=== PATIENT | male | born 1945 | race Caucasian/White ===

== ENCOUNTER 2017-09-07 20:00 | Emergency (ER) | payer MEDICARE ==
[2017-09-07 20:15] VITALS: BP 143/73; PULSE 89; RESP 18; TEMP 97.8; O2SAT 99
--- NOTE | 2017-09-07 21:03 | PD ---
HPI Chief Complaint: Syncope/Near-Syncope Time Seen by Provider: 20:48 Travel History International Travel<30 days: No Contact w/Intl Traveler<30days: No Traveled to known affect area: No History of Present Illness HPI 72-year-old male that presents to the ED for evaluation of possible syncope. Patient apparently was at [facility] and apparently per nurse report took "an extra xanax and smoked week". Per patient himself he did have a couple drinks. Normal exam patient is somnolent but arousable. He answers basic yes or no questions. But for the most part he is not really able to answer any other questions. He denies any urinary or bowel movement issues. No chest pain or shortness of breath. No abdominal pain. Patient does grunt and says yes or no questions otherwise cannot really get a good history from the patient. Again most the history is obtained from the ED nurse. Patient does smell of alcohol. No signs of trauma to the head. Unclear as to what happened to the syncopal episodes since patient cannot really tell me anything about him. [facility] Past Medical History Medical History: Unable to Obtain ?: Not Past Surgical History Surgical History: Unable to Obtain Social History Alcohol Use: Yes Tobacco Use: Yes Substance Use: No Allergies-Medications (Allergen,Severity, Reaction): Coded Allergies: Sulfa (Sulfonamide Antibiotics) (Verified Allergy, Unknown, 09/07/17) azithromycin (Verified Allergy, Unknown, 09/07/17) esomeprazole (Verified Allergy, Unknown, 09/07/17) Review of Systems ROS Limitations: Intoxication, Poor Historian Except as stated in HPI: all other systems reviewed are Neg Physical Exam Exam Limitations: Intoxication, Poor Historian Narrative GENERAL: SKIN: Warm and dry. HEAD: Atraumatic. Normocephalic. EYES: Pupils equal and round. No scleral icterus. No injection or drainage. ENT: No nasal bleeding or discharge. Mucous membranes pink and moist. Tongue is midline. No uvula deviation. NECK: Trachea midline. No JVD. CARDIOVASCULAR: Regular rate and rhythm. No murmurs, S3, S4. RESPIRATORY: No accessory muscle use. Clear to auscultation. Breath sounds equal bilaterally. GASTROINTESTINAL: Abdomen soft, non-tender, nondistended. Hepatic and splenic margins not palpable. MUSCULOSKELETAL: Extremities without clubbing, cyanosis, or edema. No obvious deformities. Full range of motion of the upper and lower extremities bilaterally. 2+ pulses bilaterally. NEUROLOGICAL: Awake and alert. No obvious cranial nerve deficits. Motor grossly within normal limits. Five out of 5 muscle strength in the arms and legs. Normal speech. PSYCHIATRIC: Appropriate mood and affect; insight and judgment normal. Data Data Last Documented VS Vital Signs Date Time Temp Pulse Resp B/P (MAP) Pulse Ox O2 Delivery O2 Flow Rate FiO2 09/07/17 20:15 97.8 89 18 143/73 (96) 99 Orders Orders Electrocardiogram (09/07/17 20:51) Complete Blood Count With Diff (09/07/17 20:51) Comprehensive Metabolic Panel (09/07/17 20:51) Iv Access Insert/Monitor (09/07/17 20:51) Electrocardiogram (09/07/17 20:57) Ckmb (Isoenzyme) Profile (09/07/17 20:57) Troponin I (09/07/17 20:57) Prothrombin Time / Inr (Pt) (09/07/17 20:57) Act Partial Throm Time (Ptt) (09/07/17 20:57) Lipase (09/07/17 20:57) Urinalysis - C+S If Indicated (09/07/17 20:57) Magnesium (Mg) (09/07/17 20:57) Thyroid Stimulating Hormone (09/07/17 20:57) Chest, Single Ap (09/07/17 20:57) Ct Brain W/O Iv Contrast(Rout) (09/07/17 20:57) Ecg Monitoring (09/07/17 20:57) Oximetry (09/07/17 20:57) Orthostatic Vital Signs (09/07/17 20:57) Drug Screen, Random Urine (09/07/17 20:57) Alcohol (Ethanol) (09/07/17 20:57) Salicylates (Aspirin) (09/07/17 20:57) Tylenol (Acetaminophen) (09/07/17 20:57) MDM Medical Decision Making Medical Screen Exam Complete: Yes Emergency Medical Condition: Yes Medical Record Reviewed: Yes Differential Diagnosis Intoxication versus syncope versus altered mental status versus CVA versus ACS versus dehydration versus hypotension Narrative Course 72-year-old male that presents to the ED for evaluation of possible syncope. Patient was properly examined and was found to have signs and symptoms consistent appears to be likely intoxication with syncope. Patient is anyone your sore history is hard to get from the patient as he does appear to be somewhat intoxicated. Private patient he had syncopal episodes witnessed by who is the one who called the ambulance. Unfortunately lives not bedside as patient is seen in the triage ambulance area. Labs and imaging were ordered. Case will be signed out to incoming provider pending disposition and plan. Leonid Maldonado Sep 07, 2017 21:03
[2017-09-07 21:23] LABS: AUTOMATED NEUTROPHIL # 3.6 TH/MM3 (1.8-7.7); BASOPHIL % 0.8 % (0.0-2.0); EOSINOPHIL # 0.2 TH/MM3 (0-0.4); EOSINOPHIL % 3.8 % (0.0-4.0); HEMATOCRIT 44.6 % (39.0-51.0); HEMOGLOBIN 15.2 GM/DL (13.0-17.0); LYMPHOCYTE # 1.9 TH/MM3 (1.0-4.8); MEAN CELL VOLUME 86.3 FL (80.0-100.0); MEAN CORPUSCULAR HEMOGLOBIN 29.5 PG (27.0-34.0); MEAN CORPUSCULAR HGB CONC 34.2 % (32.0-36.0); MEAN PLATELET VOLUME 7.4 FL (7.0-11.0); MONO % 7.1 % (0.0-8.0); MONOCYTE # 0.4 TH/MM3 (0-0.9); NEUT % 58.3 % (16.0-70.0); PLATELET COUNT 233 TH/MM3 (150-450); RED BLOOD COUNT 5.17 MIL/MM3 (4.50-5.90); RED CELL DISTRIBUTION WIDTH 13.4 % (11.6-17.2); WHITE BLOOD COUNT 6.2 TH/MM3 (4.0-11.0)
[2017-09-07 21:39] LABS: ALBUMIN 3.7 GM/DL (3.4-5.0); AST (GOT) 21 U/L (15-37); BICARBONATE 27.9 MEQ/L (21.0-32.0); BLOOD UREA NITROGEN 22 MG/DL (7-18); CALCIUM 8.7 MG/DL (8.5-10.1); CHLORIDE 102 MEQ/L (98-107); CREATININE 1.43 MG/DL (0.60-1.30); GLOMERULAR FILTRATION RATE 49 ML/MIN (>89); GLUCOSE,RANDOM 124 MG/DL (74-106); SODIUM (NA) 139 MEQ/L (136-145)
--- NOTE | 2017-09-07 21:41 | RADRPT ---
EXAM DATE/TIME: 09/07/2017 21:23 [facility] COMPARISON: No previous studies available for comparison. INDICATIONS : Syncope today. RADIATION DOSE: 66.34 CTDIvol (mGy) MEDICAL HISTORY : Non-responsive. SURGICAL HISTORY : Non-responsive. ENCOUNTER: Initial ACUITY: 1 day PAIN SCALE: Non-responsive LOCATION: Bilateral head TECHNIQUE: Multiple contiguous axial images were obtained of the head. Using automated exposure control and adj ustment of the mA and/or kV according to patient size, radiation dose was kept as low as reasonably a chievable to obtain optimal diagnostic quality images. DICOM format image data is available electro nically for review and comparison. FINDINGS: CEREBRUM: The ventricles are normal for age. No evidence of midline shift, mass lesion, hemorrhage or acute in farction. No extra-axial fluid collections are seen. POSTERIOR FOSSA: The cerebellum and brainstem are intact. The 4th ventricle is midline. The cerebellopontine angle i s unremarkable. EXTRACRANIAL: The visualized portion of the orbits is intact. SKULL: The calvaria is intact. No evidence of skull fracture. CONCLUSION: Normal examination for a patient of this age. Aidan Segal MD on September 07, 2017 at 21:36 Board Certified Radiologist. This report was verified electronically.
[2017-09-07 21:44] LABS: ALKALINE PHOSPHATASE 70 U/L (45-117); ALT (GPT) 37 U/L (12-78); TOTAL BILIRUBIN ADULT 0.4 MG/DL (0.2-1.0); TOTAL PROTEIN 6.9 GM/DL (6.4-8.2)
--- NOTE | 2017-09-07 21:45 | RADRPT ---
EXAM DATE/TIME: 09/07/2017 21:06 [facility] COMPARISON: No previous studies available for comparison. INDICATIONS : Syncope MEDICAL HISTORY : None. SURGICAL HISTORY : None. ENCOUNTER: Initial ACUITY: 1 day PAIN SCORE: Non-responsive. LOCATION: chest FINDINGS: Borderline cardiomegaly. Mild basilar atelectasis. Trace left pleural fluid. No pneumothorax. CONCLUSION: 1. Mild basilar atelectasis. Small left effusion. No pneumothorax. Aidan Segal MD on September 07, 2017 at 21:41 Board Certified Radiologist. This report was verified electronically.
[2017-09-07 21:54] VITALS: BP 130/63; PULSE 77; PULSE 78; RESP 18; O2SAT 100; O2SAT 95
--- NOTE | 2017-09-07 22:03 | PD ---
Data Data Last Documented VS Vital Signs Date Time Temp Pulse Resp B/P (MAP) Pulse Ox O2 Delivery O2 Flow Rate FiO2 09/08/17 04:46 82 18 134/73 (93) 95 09/07/17 21:54 Room Air 09/07/17 20:15 97.8 Orders Orders Electrocardiogram (09/07/17 20:51) Complete Blood Count With Diff (09/07/17 20:51) Comprehensive Metabolic Panel (09/07/17 20:51) Iv Access Insert/Monitor (09/07/17 20:51) Electrocardiogram (09/07/17 20:57) Ckmb (Isoenzyme) Profile (09/07/17 20:57) Troponin I (09/07/17 20:57) Prothrombin Time / Inr (Pt) (09/07/17 20:57) Act Partial Throm Time (Ptt) (09/07/17 20:57) Lipase (09/07/17 20:57) Urinalysis - C+S If Indicated (09/07/17 20:57) Magnesium (Mg) (09/07/17 20:57) Thyroid Stimulating Hormone (09/07/17 20:57) Chest, Single Ap (09/07/17 20:57) Ct Brain W/O Iv Contrast(Rout) (09/07/17 20:57) Ecg Monitoring (09/07/17 20:57) Oximetry (09/07/17 20:57) Orthostatic Vital Signs (09/07/17 20:57) Drug Screen, Random Urine (09/07/17 20:57) Alcohol (Ethanol) (09/07/17 20:57) Salicylates (Aspirin) (09/07/17 20:57) Tylenol (Acetaminophen) (09/07/17 20:57) Cath For Specimen (09/07/17 22:00) Ondansetron Inj (Zofran Inj) (09/07/17 23:30) Ondansetron Inj (Zofran Inj) (09/07/17 23:22) Ed Discharge Order (09/08/17 06:43) Labs Laboratory Tests Test 09/07/17 20:57 09/07/17 21:15 09/07/17 22:27 White Blood Count 6.2 TH/MM3 Red Blood Count 5.17 MIL/MM3 Hemoglobin 15.2 GM/DL Hematocrit 44.6 % Mean Corpuscular Volume 86.3 FL Mean Corpuscular Hemoglobin 29.5 PG Mean Corpuscular Hemoglobin Concent 34.2 % Red Cell Distribution Width 13.4 % Platelet Count 233 TH/MM3 Mean Platelet Volume 7.4 FL Neutrophils (%) (Auto) 58.3 % Lymphocytes (%) (Auto) 30.0 % Monocytes (%) (Auto) 7.1 % Eosinophils (%) (Auto) 3.8 % Basophils (%) (Auto) 0.8 % Neutrophils # (Auto) 3.6 TH/MM3 Lymphocytes # (Auto) 1.9 TH/MM3 Monocytes # (Auto) 0.4 TH/MM3 Eosinophils # (Auto) 0.2 TH/MM3 Basophils # (Auto) 0.0 TH/MM3 CBC Comment DIFF FINAL Differential Comment Blood Urea Nitrogen 22 MG/DL Creatinine 1.43 MG/DL Random Glucose 124 MG/DL Total Protein 6.9 GM/DL Albumin 3.7 GM/DL Calcium Level 8.7 MG/DL Alkaline Phosphatase 70 U/L Aspartate Amino Transf (AST/SGOT) 21 U/L Alanine Aminotransferase (ALT/SGPT) 37 U/L Total Bilirubin 0.4 MG/DL Sodium Level 139 MEQ/L Potassium Level 3.3 MEQ/L Chloride Level 102 MEQ/L Carbon Dioxide Level 27.9 MEQ/L Anion Gap 9 MEQ/L Estimat Glomerular Filtration Rate 49 ML/MIN Prothrombin Time 9.5 SEC Prothromb Time International Ratio 0.9 RATIO Activated Partial Thromboplast Time 21.4 SEC Magnesium Level 2.2 MG/DL Total Creatine Kinase 85 U/L Troponin I LESS THAN 0.02 NG/ML Lipase 136 U/L Thyroid Stimulating Hormone 3rd Gen 1.220 uIU/ML Salicylates Level LESS THAN 1.7 MG/DL Acetaminophen Level LESS THAN 2.0 MCG/ML Ethyl Alcohol Level 9 MG/DL Urine Color YELLOW Urine Turbidity CLEAR Urine pH 6.0 Urine Specific [place] 1.014 Urine Protein NEG mg/dL Urine Glucose (UA) NEG mg/dL Urine Ketones NEG mg/dL Urine Occult Blood TRACE Urine Nitrite NEG Urine Bilirubin NEG Urine Urobilinogen LESS THAN 2.0 MG/DL Urine Leukocyte Esterase NEG Urine RBC 17 /hpf Urine Mucus FEW /lpf Microscopic Urinalysis Comment CULT NOT INDICATED Urine Opiates Screen NEG Urine Barbiturates Screen NEG Urine Amphetamines Screen NEG Urine Benzodiazepines Screen POS Urine Cocaine Screen NEG Urine Cannabinoids Screen NEG MDM Medical Record Reviewed: Yes Supervised Visit with ALEC: No Narrative Course I assumed care of this patient pending lab work and imaging studies. The patient came by EMS and the report that the nurse obtain was [facility] and smokes marijuana. His reportedly called 911 because he had a syncopal episode afterwards. On initial examination the patient has drowsy, sleeping, somewhat arousable to sternal rub , able to answer a few questions. He reports that he has a history of hypertension and he takes losartan. He does not recall the events that happened tonight. He has no complaints except that he is tired. He has never been to [place] before so there is minimal history obtainable on initial examination. The patient's has arrived and provides information. They are snowbirds, live in [place] and [facility]. She reports that tonight he took an extra dose of Xanax, had some alcoholic beverages and smokes marijuana at a friend's house. They then went to dinner. After dinner the patient was not feeling good and put his head on the table and was unable to stand up. The patient's lab work and imaging studies have been reviewed. Potassium is 3.3, GFR is 49, toxicology screen positive for benzodiazepines, alcohol level is 9, chest x-ray reveals small left effusion, CT brain reveals no acute abnormalities. The history is consistent with medication/alcohol coingestion side effect. The patient will remain here overnight and he will be reevaluated in the morning, likely to be discharged once his sedative medications wear off. 0645: The patient is now awake and alert, able to ambulate independently, feels ready to go. His will be called to pick him up. Diagnosis Primary Impression: Medication side effect Additional Instruction: Follow-up closely with primary care physician. Return for any emergent medical conditions. Med/Other Pt SpecificInfo: No Change to Meds Disposition: 01 DISCHARGE HOME Condition: Stable Chandu Bhatti Sep 07, 2017 22:03
[2017-09-07 22:17] LABS: ACETAMINOPHEN LESS THAN 2.0 MCG/ML (10.0-30.0); MAGNESIUM 2.2 MG/DL (1.5-2.5)
[2017-09-07 22:21] LABS: INTERNATIONAL NORMALIZED RATIO 0.9 RATIO; PROTHROMBIN TIME - PATIENT 9.5 SEC (9.8-11.6)
[2017-09-07 22:26] LABS: TROPONIN I LESS THAN 0.02 NG/ML (0.02-0.05)
[2017-09-07 22:41] LABS: BILIRUBIN, URINE NEG (NEG); BLOOD, URINE TRACE (NEG); GLUCOSE,URINE NEG (NEG); KETONE, URINE NEG (NEG); MUCUS URINE FEW /lpf (OCC); NITRITE,URINE NEG (NEG); URINE COLOR YELLOW (YELLW/STRAW); URINE LEUKOCYTE ESTERASE NEG (NEG)
[2017-09-07] MEDS ORDERED: ONDANSETRON HCL 4 MG/2 ML VIAL ONE (23:22)
[2017-09-07] MEDS ORDERED: ONDANSETRON HCL 4 MG/2 ML VIAL IV PUSH ONE (23:30)
--- NOTE | 2017-09-07 23:59 | PD ---
Data Data Last Documented VS Vital Signs Date Time Temp Pulse Resp B/P (MAP) Pulse Ox O2 Delivery O2 Flow Rate FiO2 09/07/17 21:54 78 18 130/63 (85) 95 Room Air 09/07/17 20:15 97.8 Orders Orders Electrocardiogram (09/07/17 20:51) Complete Blood Count With Diff (09/07/17 20:51) Comprehensive Metabolic Panel (09/07/17 20:51) Iv Access Insert/Monitor (09/07/17 20:51) Electrocardiogram (09/07/17 20:57) Ckmb (Isoenzyme) Profile (09/07/17 20:57) Troponin I (09/07/17 20:57) Prothrombin Time / Inr (Pt) (09/07/17 20:57) Act Partial Throm Time (Ptt) (09/07/17 20:57) Lipase (09/07/17 20:57) Urinalysis - C+S If Indicated (09/07/17 20:57) Magnesium (Mg) (09/07/17 20:57) Thyroid Stimulating Hormone (09/07/17 20:57) Chest, Single Ap (09/07/17 20:57) Ct Brain W/O Iv Contrast(Rout) (09/07/17 20:57) Ecg Monitoring (09/07/17 20:57) Oximetry (09/07/17 20:57) Orthostatic Vital Signs (09/07/17 20:57) Drug Screen, Random Urine (09/07/17 20:57) Alcohol (Ethanol) (09/07/17 20:57) Salicylates (Aspirin) (09/07/17 20:57) Tylenol (Acetaminophen) (09/07/17 20:57) Cath For Specimen (09/07/17 22:00) Ondansetron Inj (Zofran Inj) (09/07/17 23:30) Ondansetron Inj (Zofran Inj) (09/07/17 23:22) Labs Laboratory Tests Test 09/07/17 20:57 09/07/17 21:15 09/07/17 22:27 White Blood Count 6.2 TH/MM3 Red Blood Count 5.17 MIL/MM3 Hemoglobin 15.2 GM/DL Hematocrit 44.6 % Mean Corpuscular Volume 86.3 FL Mean Corpuscular Hemoglobin 29.5 PG Mean Corpuscular Hemoglobin Concent 34.2 % Red Cell Distribution Width 13.4 % Platelet Count 233 TH/MM3 Mean Platelet Volume 7.4 FL Neutrophils (%) (Auto) 58.3 % Lymphocytes (%) (Auto) 30.0 % Monocytes (%) (Auto) 7.1 % Eosinophils (%) (Auto) 3.8 % Basophils (%) (Auto) 0.8 % Neutrophils # (Auto) 3.6 TH/MM3 Lymphocytes # (Auto) 1.9 TH/MM3 Monocytes # (Auto) 0.4 TH/MM3 Eosinophils # (Auto) 0.2 TH/MM3 Basophils # (Auto) 0.0 TH/MM3 CBC Comment DIFF FINAL Differential Comment Blood Urea Nitrogen 22 MG/DL Creatinine 1.43 MG/DL Random Glucose 124 MG/DL Total Protein 6.9 GM/DL Albumin 3.7 GM/DL Calcium Level 8.7 MG/DL Alkaline Phosphatase 70 U/L Aspartate Amino Transf (AST/SGOT) 21 U/L Alanine Aminotransferase (ALT/SGPT) 37 U/L Total Bilirubin 0.4 MG/DL Sodium Level 139 MEQ/L Potassium Level 3.3 MEQ/L Chloride Level 102 MEQ/L Carbon Dioxide Level 27.9 MEQ/L Anion Gap 9 MEQ/L Estimat Glomerular Filtration Rate 49 ML/MIN Prothrombin Time 9.5 SEC Prothromb Time International Ratio 0.9 RATIO Activated Partial Thromboplast Time 21.4 SEC Magnesium Level 2.2 MG/DL Total Creatine Kinase 85 U/L Troponin I LESS THAN 0.02 NG/ML Lipase 136 U/L Thyroid Stimulating Hormone 3rd Gen 1.220 uIU/ML Salicylates Level LESS THAN 1.7 MG/DL Acetaminophen Level LESS THAN 2.0 MCG/ML Ethyl Alcohol Level 9 MG/DL Urine Color YELLOW Urine Turbidity CLEAR Urine pH 6.0 Urine Specific [place] 1.014 Urine Protein NEG mg/dL Urine Glucose (UA) NEG mg/dL Urine Ketones NEG mg/dL Urine Occult Blood TRACE Urine Nitrite NEG Urine Bilirubin NEG Urine Urobilinogen LESS THAN 2.0 MG/DL Urine Leukocyte Esterase NEG Urine RBC 17 /hpf Urine Mucus FEW /lpf Microscopic Urinalysis Comment CULT NOT INDICATED Urine Opiates Screen NEG Urine Barbiturates Screen NEG Urine Amphetamines Screen NEG Urine Benzodiazepines Screen POS Urine Cocaine Screen NEG Urine Cannabinoids Screen NEG MDM Supervised Visit with ALEC: Yes Narrative Course The history, exam, and medical decision-making in the associated mid-level provider note were completed with my assistance. I reviewed and agree with the findings presented. I attest that I had a [id number] encounter with the patient on the same day, and personally performed and documented my assessment and findings in the medical record. *My assessment and Findings: 72-year-old man, overdose on Xanax and alcohol. Still sluggishly responsive now. No evidence of trauma. Plan sleep it off, discharge with in a.m. Diagnosis Primary Impression: Medication side effect Dane Hyatt MD Sep 07, 2017 23:59
[2017-09-08 04:46] VITALS: BP 134/73; PULSE 82; RESP 18; O2SAT 95
[2017-09-08 07:23] VITALS: BP 121/71
--- NOTE | 2017-09-08 08:45 | EKG ---
Date Performed: 09/07/2017 Time Performed: 21:18:50 PTAGE: 72 years EKG: Sinus rhythm WITH FIRST DEGREE AV BLOCK RIGHT BUNDLE BRANCH BLOCK LEFT ANTERIOR FASCICULAR BLOCK ABNORMAL ECG NO PREVIOUS TRACING DOCTOR: Harjeet Presley Interpretating Date/Time 09/08/2017 08:31:37
== END 2017-09-08 07:58 | disposition home or self-care (01) ==
LOC: NEPD 20:00
DX: T42.4X1A Poisoning by benzodiazepines, accidental (unintentional), initial encounter (principal); F10.129 Alcohol abuse with intoxication, unspecified; F12.90 Cannabis use, unspecified, uncomplicated; J98.11 Atelectasis; J90 Pleural effusion, not elsewhere classified; I44.0 Atrioventricular block, first degree; I45.2 Bifascicular block; R94.31 Abnormal electrocardiogram [ECG] [EKG]; Z72.0 Tobacco use
CPT/HCPCS: 70450; 71045; 80053; 80307; 81001; 82550; 83690; 83735; 84443; 84484; 85025; 85610; 85730; 93005; 96374; 99285; J2405